=== PATIENT | male | born 1950 | race Caucasian/White ===

== ENCOUNTER → 2019-05-03 | Outpatient (CLI) | payer OTHER, MEDICARE ==
[~2019-05-03] MED LIST: ACULAR10 ML OP; APAP500 PO; BENAZEPRIL HCL5 MG PO; CALCIUM PO; COLACE100 MG PO; COSOPT EYE DROPS5 ML OP; FOSAMAX 70 MG T70 M1 OR; LOTENSIN5 MG OR; LOTENSIN5 MG PO; METAMUCIL283 GM PO; NEURONTIN 300300 M1 OR; NEURONTIN 300300 M1 PO; NEURONTIN 300M300 M2 PO; NEURONTIN600 MG OR; PRED FORTE 1% EY5 M1 OP; RELAFEN500 MG OR; RELAFEN500 MG PO; TRAMADOL 50 MG50 MG PO; ULTRAM 50MG TAB50 MG PO; UROXATRAL OR; VITAMIN D400 UNI1 PO
== END ==
LOC: MRI 10:36
DX: M51.16 Intervertebral disc disorders with radiculopathy, lumbar region (principal); M48.061 Spinal stenosis, lumbar region without neurogenic claudication; G95.9 Disease of spinal cord, unspecified; E78.5 Hyperlipidemia, unspecified; E55.9 Vitamin D deficiency, unspecified; M43.27 Fusion of spine, lumbosacral region; M12.88 Other specific arthropathies, not elsewhere classified, other specified site; Z68.26 Body mass index [BMI] 26.0-26.9, adult